=== PATIENT | male | born 1960 | race Caucasian/White ===

== ENCOUNTER → 2021-04-10 | Outpatient (CLI) | payer OTHER | LOC: HYPER 13:43 | PROVIDERS: ATTEND Emergency Medicine | DX: L89.153 Pressure ulcer of sacral region, stage 3 (principal); M79.662 Pain in left lower leg; M87.052 Idiopathic aseptic necrosis of left femur; M54.16 Radiculopathy, lumbar region; F17.200 Nicotine dependence, unspecified, uncomplicated; Z79.899 Other long term (current) drug therapy; Z96.642 Presence of left artificial hip joint ==

== ENCOUNTER → 2021-04-17 | Outpatient (CLI) | payer OTHER | LOC: HYPER 08:21 | PROVIDERS: ATTEND Emergency Medicine | DX: L89.153 Pressure ulcer of sacral region, stage 3 (principal); M79.662 Pain in left lower leg; M87.052 Idiopathic aseptic necrosis of left femur; M54.16 Radiculopathy, lumbar region; F17.200 Nicotine dependence, unspecified, uncomplicated; Z79.899 Other long term (current) drug therapy; Z96.642 Presence of left artificial hip joint ==

== ENCOUNTER → 2021-05-03 | Outpatient (CLI) | payer OTHER | LOC: HYPER 10:00 | PROVIDERS: ATTEND Emergency Medicine | DX: L89.153 Pressure ulcer of sacral region, stage 3 (principal); M79.662 Pain in left lower leg; M87.052 Idiopathic aseptic necrosis of left femur; M54.16 Radiculopathy, lumbar region; F17.200 Nicotine dependence, unspecified, uncomplicated; Z79.899 Other long term (current) drug therapy; Z96.642 Presence of left artificial hip joint ==